=== PATIENT | male | born 2000 | race Caucasian/White ===

== ENCOUNTER 2021-05-15 20:12 | Emergency (ER) | payer MEDICAID ==
[~2021-05-15] VITALS: Ht 177.8 cm; Wt 68.2 kg
[2021-05-15 20:18] VITALS: TEMP 98
[2021-05-15] MEDS ORDERED: CRUTCHES MC (22:10)
[2021-05-15 22:11] VITALS: BP 128/58; PULSE 89
== END 2021-05-15 22:13 | disposition home or self-care (01) ==
LOC: COL.ER 20:12
DX: S93.401A Sprain of unspecified ligament of right ankle, initial encounter (principal); X50.1XXA Overexertion from prolonged static or awkward postures, initial encounter; Y93.67 Activity, basketball

== ENCOUNTER 2021-06-13 09:45 | Outpatient (RCR) | payer MEDICAID ==
[~2021-06-13 09:45] MED LIST: CRUTCHES MC
== END 2021-06-13 13:50 | disposition home or self-care (01) ==
LOC: WSPT 09:45
DX: M25.571 Pain in right ankle and joints of right foot (principal)